=== PATIENT | female | born 1950 | race Caucasian/White ===

== ENCOUNTER 2018-02-08 11:30 | Inpatient (IN) ==
[2018-02-08] MEDS ORDERED: Chlorhexidine Gluconate 2% 1 Pack (2 Cloths) TOPICAL ONE (11:47)
[2018-02-08] MEDS ORDERED: Metoprolol Tartrate 25 MG Tablet PO ONE (11:47)
[2018-02-08] MEDS ORDERED: Sodium Chlor 0.9% Inj 500 ML IV.SIG SCH (12:00)
[2018-02-08] MEDS ORDERED: ceFAZolin 1 GM Premix Inj 1 GM/50 ML IV.SIG SCH (12:00)
[2018-02-08] MEDS: Dextrose 5%/NaCl 0.9% Inj 1,000 ML IV.CONT SCH ×2 (12:34→21:33)
[2018-02-08] MEDS ORDERED: Sugammadex Inj 200 MG/2 ML Vial IV.PUSH ONE (13:43)
[2018-02-08] MEDS ORDERED: Potassium Chlor 40 mEq Premix 40 MEQ/100 ML PIGGYBACK IV.SIG PRN (15:40)
[2018-02-08] MEDS ORDERED: Potassium Chlor 20 mEq Premix 20 MEQ/100 ML PIGGYBACK IV.SIG PRN (15:40)
[2018-02-08] MEDS ORDERED: fentaNYL Citrate Inj 100 MCG/2 ML Ampul ONE (15:57)
[2018-02-08] MEDS ORDERED: Naloxone Inj 0.4 MG/ML Vial IV.PUSH PRN (15:59)
--- NOTE | 2018-02-08 16:05 | P.OP ---
- Preoperative Diagnosis (1) Polyp, sigmoid colon - Postoperative Diagnosis (1) Cancer of sigmoid colon Date of procedure: 02/08/18 Procedure: Sigmoid colectomy,LAR Anesthesia: GETA Surgeon: Carter Lowe MD Orthopedic Assistant: Tremayne White Estimated blood loss (mL): 200 Operation and Findings: Probable 3 cm pedunculated sigmoid cancer
--- NOTE | 2018-02-08 16:21 | MH ---
cc: Carter Lowe MD, John T MD DATE OF ADMISSION: 02/08/2018 CHIEF COMPLAINT: A 3 cm polyp in the sigmoid colon. HISTORY OF PRESENT ILLNESS: This patient was seen originally by Dr. White and underwent a colonoscopy. At colonoscopy, there was a 2.5-3 cm sigmoid colon lesion at about 18 cm on an angle. It was biopsied; it biopsied benign, but it was suspicious for malignancy. For this reason, sigmoid colectomy was recommended. Past medical history, family history, social history, review of systems otherwise negative, other than the blood in her stools. The patient admitted to alcohol usage of 3-4 drinks once a week. PAST MEDICAL HISTORY: As above FAMILY HISTORY: As above SOCIAL HISTORY: As above MEDICATIONS: 1. Fluoxetine. 2. Fenofibrate. 3. Folic acid. 4. Ferrous sulfate. 5. Rosuvastatin. PHYSICAL EXAMINATION: GENERAL: Well-developed, well-nourished female, in no acute distress. SKIN: Warm and dry. HEENT: Extraocular muscles intact. NECK: Supple. CHEST: Clear. HEART: S1, S2 was heard. No murmurs or gallops. ABDOMEN: Soft, nontender. No masses. RECTAL: Exam was not done by me. EXTREMITIES: Range of motion within normal limits. NEUROLOGIC: Grossly normal. IMPRESSION: Suspicious 2-3 cm lesion in the sigmoid colon, biopsied as adenomatous. PLAN: Recommend sigmoid colectomy with low anterior resection anastomosis. The risks, benefits and alternatives were discussed with the patient and her [id number]. They understand and she wished to proceed. MD SHELBY Cody/patricio , 04:02 PM , 04:09 PM GISELL
[2018-02-08] MEDS: Morphine Inj 30 MG/30 ML PCA.VIAL PCA PRN (16:25)
[2018-02-08] MEDS: KCL 20 mEq/D5W/LR Inj 1,000 ML IV.CONT PRN ×2 (16:25→20:30)
[2018-02-08] MEDS ORDERED: *morphine SULFATE 4 MG/ML PERIprocedure ONLY ONE ×2 (16:29→17:08)
[2018-02-08 16:38] LABS: Baso % (Auto) 0.1 % (0.0-2.0); Eos % (Auto) 0.1 % (0.0-4.0); Hematocrit 28.6 % (35.0-46.0); Hemoglobin 9.4 gm/dL (11.6-15.3); Lymph # (Auto) 0.5 th/mm3 (1.0-4.8); Lymph % (Auto) 3.8 % (9.0-44.0); Mean Corpuscular HGB Conc 32.8 % (32.0-36.0); Mean Corpuscular Hemoglobin 34.8 pg (27.0-34.0); Mean Corpuscular Volume 105.9 fL (80.0-100.0); Mono # (Auto) 0.4 th/mm3 (0.0-0.9); Mono % (Auto) 2.9 % (0.0-8.0); Neut # (Auto) 13.1 th/mm3 (1.8-7.7); Neut % (Auto) 93.1 % (16.0-70.0); Platelet Count 351 th/mm3 (150-450); Red Cell Distribution Width 14.9 % (11.6-17.2); White Blood Count 14.1 th/mm3 (4.0-11.0)
[2018-02-08 17:07] LABS: Potassium 3.2 meq/L (3.5-5.1)
--- NOTE | 2018-02-08 17:45 | MP ---
cc: Carter Lowe MD, John T MD Hinman, Roy DATE OF OPERATION: 02/08/2018 PREOPERATIVE DIAGNOSIS: Sigmoid colon polyp. POSTOPERATIVE DIAGNOSIS: Sigmoid colon carcinoma. PROCEDURE PERFORMED: Sigmoid colectomy, low anterior resection. Omental flap ANESTHESIA: General endotracheal. SURGEON: Carter Lowe MD MONOGRAM MAKER: Tremayne White MD ESTIMATED BLOOD LOSS: 200 mL OPERATING TIME: 1 hour and 15 minutes. OPERATIVE FINDINGS PROCEDURE: This patient underwent colonoscopy finding with somewhat pedunculated lesion on an angulated piece of sigmoid colon. It appeared suspicious for carcinoma, but biopsied benign. At surgery, there was a firm pedunculated 3 cm lesion that was probably a carcinoma. Exploration of the abdominal cavity revealed that the liver, gallbladder, colon and small bowel were all palpably normal as was the uterus and the tubes and ovaries. The lesion was palpable in the lower sigmoid colon and a sigmoid colectomy was done with a colorectal anastomosis. OPERATIVE TECHNIQUE: The patient was placed on the table in the supine position. After adequate general endotracheal anesthesia. Legs were placed in a perineal lithotomy position and the abdomen was prepped and draped in the usual manner. Transverse infraumbilical skin incision was made, carried down through subcutaneous tissue. The rectus muscles and the peritoneal cavity was entered with the above-mentioned findings. The sigmoid colon was mobilized along its peritoneal reflection as was the descending colon, transverse colon, and the splenic flexure. The omentum was mobilized from the transverse colon and eventually used for an omental flap in the pelvis. The left ureter was identified and protected at all times. The superior hemorrhoidal vessels were doubly clamped, cut and doubly ligated with 0 Vicryl ligature and the inferior mesenteric vein was clamped, cut and ligated as well. Next, the retrorectal space was entered and the lateral pelvic peritoneum was incised bilaterally and the dissection was taken down to the pelvic floor posteriorly and then laterally and the cul-de-sac was incised anteriorly, but not entered or developed posterior to the vagina. The rectum was cleared in its upper portion of its mesorectum and the mesorectum was clamped, cut and ligated and the pursestring stapling device was placed on the rectum. We then chose a point in the sigmoid colon for division and the remainder of the sigmoid vessels and mesentery was clamped, cut and ligated and the pursestring stapling device was placed on the sigmoid colon. The anvil of the [employer] EEA 29 was placed in the proximal bowel and the pursestring was tied. Dr. White went below and placed the EEA instrument transanally and the distal pursestring was tied and the instrument was connected, closed and fired, creating the circular anastomosis. There was no tension on the anastomosis. The blood supply was excellent. Dr. White ended proctosigmoidoscopy examination, insufflating air into the rectum with saline solution in the pelvis and no air leaks were identified. The anastomosis looked excellent. The blood supply was excellent. The pelvis was irrigated thoroughly with 3 liters of saline solution, aspirated dry. Hemostasis was maintained throughout with electrocautery and ligature. The omentum was placed down in the pelvis to seal the pelvis and the cecum and the small bowel was replaced in the abdominal cavity in an washer assembler manner. The abdominal cavity was then closed in layers using a double-stranded #1 PDS for the posterior rectus sheath and the muscle layer was irrigated and then the anterior rectus sheath was also closed with double stranded #1 PDS as well. The subcutaneous tissue was irrigated thoroughly with saline solution. Skin was closed with running 3-0 Vicryl subcuticular suture and a dressing was applied. It should be mentioned that a drain was placed through a stab wound in the right lower quadrant and placed in the retrorectal space. Dressings were applied. Sponge and instrument counts were reported as correct. MD SHELBY Cody/katie , 03:57 PM , 04:08 PM GISELL
[2018-02-08] MEDS ORDERED: *HYDROmorphone PF Inj 1 MG/ML Ampul PERIprocedural Use ONLY ONE (17:48)
[2018-02-08] MEDS ORDERED: Zolpidem Tartrate 5 MG Tablet PO PRN (21:00)
[2018-02-08] MEDS: ceFAZolin 2 GM Premix Inj 2 GM/50 ML PIGGYBACK IV.SIG SCH (21:00)
[2018-02-09 05:04] LABS: Hematocrit 24.7 % (35.0-46.0); Hemoglobin 8.4 gm/dL (11.6-15.3); Mean Corpuscular HGB Conc 34.3 % (32.0-36.0); Mean Corpuscular Hemoglobin 35.6 pg (27.0-34.0); Mean Platelet Volume 7.2 fL (7.0-11.0); Neut % (Auto) 87.3 % (16.0-70.0); Platelet Count 359 th/mm3 (150-450); Red Blood Count 2.37 mil/mm3 (4.00-5.30); Red Cell Distribution Width 15.1 % (11.6-17.2)
[2018-02-09 05:05] LABS: Baso % (Auto) 0.1 % (0.0-2.0); Lymph # (Auto) 0.4 th/mm3 (1.0-4.8); Lymph % (Auto) 4.1 % (9.0-44.0); Mono # (Auto) 0.9 th/mm3 (0.0-0.9); Mono % (Auto) 8.5 % (0.0-8.0); Neut # (Auto) 9.6 th/mm3 (1.8-7.7)
[2018-02-09] MEDS: KCL 20 mEq/D5W/LR Inj 1,000 ML IV.CONT PRN ×3 (05:47→19:30)
[2018-02-09 06:00] LABS: Calcium 7.9 mg/dL (8.5-10.1); Carbon Dioxide 25.9 meq/L (21.0-32.0); Potassium 3.9 meq/L (3.5-5.1)
[2018-02-09] MEDS: ceFAZolin 2 GM Premix Inj 2 GM/50 ML PIGGYBACK IV.SIG SCH ×2 (06:17→12:41)
[2018-02-09] MEDS: Dextrose 5%/NaCl 0.9% Inj 1,000 ML IV.CONT SCH (06:20)
[2018-02-09] MEDS: Folic Acid 1 MG Tablet PO SCH (08:34)
[2018-02-09] MEDS: Fenofibrate 145 MG Tablet PO SCH (08:34)
[2018-02-09] MEDS: Pantoprazole Inj 40 MG Vial IV.PUSH SCH (08:35)
[2018-02-09] MEDS: FLUoxetine 20 MG Capsule PO SCH (08:35)
[2018-02-09] MEDS: Morphine Inj 30 MG/30 ML PCA.VIAL PCA PRN (16:02)
--- NOTE | 2018-02-09 17:11 | P.PNCS ---
Subjective Colorectal Surgery Post Op Day #: 1 Interval history: Ivs not turned down to 100/hr from 150/hr this AM as ordered. No N or V. No BMs. Objective Result Diagrams: 02/09/18 04:28 02/09/18 04:28 Objective Remarks: Abd: Soft,non distended, ecchymosis around drain Neuro: Awake, alert oriented x3. No confusion or EtoH withdrawl symptoms. 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
[2018-02-10 05:08] LABS: Baso % (Auto) 0.1 % (0.0-2.0); Hematocrit 23.1 % (35.0-46.0); Hemoglobin 7.8 gm/dL (11.6-15.3); Lymph # (Auto) 0.9 th/mm3 (1.0-4.8); Lymph % (Auto) 9.7 % (9.0-44.0); Mean Corpuscular HGB Conc 33.7 % (32.0-36.0); Mean Corpuscular Volume 103.7 fL (80.0-100.0); Mean Platelet Volume 7.1 fL (7.0-11.0); Mono # (Auto) 0.9 th/mm3 (0.0-0.9); Mono % (Auto) 9.7 % (0.0-8.0); Neut # (Auto) 7.8 th/mm3 (1.8-7.7); Neut % (Auto) 80.5 % (16.0-70.0); Platelet Count 323 th/mm3 (150-450); Red Blood Count 2.23 mil/mm3 (4.00-5.30); Red Cell Distribution Width 14.9 % (11.6-17.2); White Blood Count 9.7 th/mm3 (4.0-11.0)
[2018-02-10 05:43] LABS: Calcium 8.3 mg/dL (8.5-10.1); Carbon Dioxide 29.3 meq/L (21.0-32.0); Potassium 3.6 meq/L (3.5-5.1)
[2018-02-10] MEDS: Pantoprazole Inj 40 MG Vial IV.PUSH SCH (09:56)
[2018-02-10] MEDS: Folic Acid 1 MG Tablet PO SCH (09:56)
[2018-02-10] MEDS: Fenofibrate 145 MG Tablet PO SCH (09:56)
[2018-02-10] MEDS: FLUoxetine 20 MG Capsule PO SCH (09:57)
--- NOTE | 2018-02-10 12:09 | P.PNCS ---
Subjective Colorectal Surgery Post Op Day #: 2 Interval history: s/p sigmoid colectomy Objective Result Diagrams: 02/10/18 04:39 02/10/18 04:39 Objective Remarks: Abd: Soft,non distended, mildly tender, ecchymosis around drain Neuro: Awake, alert oriented x3. No confusion or EtoH withdrawl symptoms. Assessment and Plan - Plan Moblize, advance diet Follow H&Hs Ambulate in halls IV to 60
[2018-02-10] MEDS: KCL 20 mEq/D5W/LR Inj 1,000 ML IV.CONT PRN (14:44)
[2018-02-11] MEDS: Folic Acid 1 MG Tablet PO SCH (09:10)
[2018-02-11] MEDS: FLUoxetine 20 MG Capsule PO SCH (09:10)
[2018-02-11] MEDS: Pantoprazole Inj 40 MG Vial IV.PUSH SCH (09:10)
[2018-02-11] MEDS: Fenofibrate 145 MG Tablet PO SCH (09:10)
[2018-02-11] MEDS: KCL 20 mEq/D5W/LR Inj 1,000 ML IV.CONT PRN (11:52)
[2018-02-11 12:02] LABS: Eos % (Auto) 0.2 % (0.0-4.0); Hematocrit 25.3 % (35.0-46.0); Hemoglobin 8.4 gm/dL (11.6-15.3); Lymph # (Auto) 0.8 th/mm3 (1.0-4.8); Lymph % (Auto) 9.2 % (9.0-44.0); Mean Corpuscular HGB Conc 33.3 % (32.0-36.0); Mean Corpuscular Hemoglobin 34.9 pg (27.0-34.0); Mean Corpuscular Volume 104.5 fL (80.0-100.0); Mean Platelet Volume 7.2 fL (7.0-11.0); Mono # (Auto) 0.9 th/mm3 (0.0-0.9); Mono % (Auto) 10.2 % (0.0-8.0); Neut # (Auto) 6.8 th/mm3 (1.8-7.7); Neut % (Auto) 80.4 % (16.0-70.0); Platelet Count 387 th/mm3 (150-450); Red Blood Count 2.42 mil/mm3 (4.00-5.30); White Blood Count 8.5 th/mm3 (4.0-11.0)
[2018-02-11 12:23] LABS: Carbon Dioxide 31.1 meq/L (21.0-32.0); Potassium 3.1 meq/L (3.5-5.1)
--- NOTE | 2018-02-11 12:56 | P.PNCS ---
Subjective Colorectal Surgery Post Op Day #: 3 Interval history: s/p sigmoid colectomy reports significant pain Objective Result Diagrams: 02/11/18 11:29 02/11/18 11:29 Objective Remarks: Abd: Soft,non distended,tender Neuro: Awake, alert oriented x3. No confusion or EtoH withdrawl symptoms. Assessment and Plan - Plan Moblize, advance diet Ambulate in halls IV
[2018-02-12] MEDS: Folic Acid 1 MG Tablet PO SCH (09:24)
[2018-02-12] MEDS: Fenofibrate 145 MG Tablet PO SCH (09:24)
[2018-02-12] MEDS: FLUoxetine 20 MG Capsule PO SCH (09:24)
[2018-02-12] MEDS: Pantoprazole Inj 40 MG Vial IV.PUSH SCH (09:24)
--- NOTE | 2018-02-12 14:02 | P.PNCS ---
Subjective Colorectal Surgery Post Op Day #: 4 Interval history: s/p sigmoid resection comfortable Objective Result Diagrams: 02/11/18 11:29 02/12/18 05:00 Objective Remarks: Abd: Soft,non distended,tender Neuro: Awake, alert oriented x3. Assessment and Plan - Plan Doing well Home today Followup PCP Monday, Dr. Lowe 3 weeks
== END 2018-02-12 15:43 | disposition home or self-care (01) ==
LOC: HSDI 11:30 → HCPC 20:47 → HCIN 02-12 10:25
PROVIDERS: ADMIT Colon & Rectal Surgery; ATTEND Colon & Rectal Surgery